=== PATIENT | female | born 2000 | race Caucasian/White ===

== ENCOUNTER 2025-08-11 12:13 | Emergency (ER) | payer BC ==
[2025-08-11] MEDS ORDERED: Bacitracin 1 PK ONE (13:05)
[2025-08-11] MEDS ORDERED: Boostrix 0.5 ML (Tdap) VIAL (>/=7 yrs of age) ONE (13:06)
== END 2025-08-11 13:28 | disposition home or self-care (01) ==
LOC: CSHERS 12:13
DX: T23.262A Burn of second degree of back of left hand, initial encounter (principal); T23.012A Burn of unspecified degree of left thumb (nail), initial encounter; X19.XXXA Contact with other heat and hot substances, initial encounter; Y93.G3 Activity, cooking and baking
CPT/HCPCS: 16020; 90471; 90715